=== PATIENT | male | born 1965 | race Caucasian/White ===

== ENCOUNTER 2021-03-07 10:50 | Emergency (ER) | payer BC ==
[~2021-03-07] VITALS: Ht 167.6 cm; Wt 84.8 kg
--- NOTE | 2021-03-07 13:00 | NUR ---
Pt states he has high blood pressure, unkown time frame. Pt denies CP, SOB, dizziness, n/v, no other complaints, no distress noted. Pt difficult to arouse, somnolent.
[2021-03-07 14:55] LABS: HEMATOCRIT 48.4 % (36.7-47.1); MEAN CORPUSCULAR HEMOGLOBIN 30.7 uug (23.8-33.4); MEAN CORPUSCULAR VOLUME 92.2 fL (73.0-96.2); PLATELET COUNT (AUTO) 229 K/uL (152-348)
[2021-03-07 15:01] LABS: CREATININE 0.7 mg/dL (0.6-1.3); POTASSIUM 3.8 mmol/L (3.5-5.1)
[2021-03-07 15:14] LABS: BILIRUBIN,DIRECT 0.1 mg/dL (0.0-0.2); BILIRUBIN,TOTAL 0.3 mg/dL (0.2-1.0)
--- NOTE | 2021-03-07 16:39 | NUR ---
Gave pt d/c instructions, pt verbalized understanding.
[2021-03-07 16:44] VITALS: BP 172/102
== END 2021-03-07 16:46 | disposition home or self-care (01) ==
LOC: ER 10:50
DX: I10 Essential (primary) hypertension (principal); F15.10 Other stimulant abuse, uncomplicated; R51.9 Headache, unspecified; R94.31 Abnormal electrocardiogram [ECG] [EKG]
CPT/HCPCS: 36415; 70030-TC; 70450; 71045; 85025; 93005; A4663

== ENCOUNTER 2021-03-09 07:38 | Emergency (ER) | payer BC ==
[~2021-03-09] VITALS: Ht 167.6 cm; Wt 81.6 kg
[2021-03-09] MEDS ORDERED: HTN MEDS (07:47)
[2021-03-09] MEDS ORDERED: CLONIDINE HCL 0.2 MG TABLET PO ONE (08:00)
[2021-03-09 08:07] VITALS: BP 179/108
[2021-03-09] MEDS ORDERED: CLONIDINE HCL 0.2 MG TABLET ONE (08:11)
== END 2021-03-09 09:11 | disposition home or self-care (01) ==
LOC: ER 07:41
DX: I10 Essential (primary) hypertension (principal); F15.10 Other stimulant abuse, uncomplicated
CPT/HCPCS: A4663